=== PATIENT | female | born 1985 | race Caucasian/White ===

== ENCOUNTER 2020-04-09 11:57 | Inpatient (IN) | payer OTHER ==
[2020-04-09 12:53] VITALS: BMI 25.3
[2020-04-09] MEDS ORDERED: BISMUTH SUBSALICYLATE 524 MG/30 ML UD PO PRN (13:34)
[2020-04-09] MEDS ORDERED: ACETAMINOPHEN 325 MG TABLET (FP) PO PRN ×2 (13:34)
[2020-04-09] MEDS ORDERED: MENTHOL/PHENOL 1 EACH UD MM PRN (13:34)
[2020-04-09] MEDS ORDERED: MAG HYDROX/AL HYDROX/SIMETH 30 ML UNIT-DOSE CUP PO PRN (13:34)
[2020-04-09] MEDS ORDERED: MAGNESIUM HYDROX 2400MG/30ML ORAL SUSPENSION 30 ML CUP PO PRN (13:34)
[2020-04-09] MEDS ORDERED: NICOTINE POLACRILEX 2 MG GUM BUC PRN (13:34)
[2020-04-09] MEDS ORDERED: IBUPROFEN 400 MG TABLET (FP) PO PRN (13:34)
[2020-04-09] MEDS ORDERED: METHOCARBAMOL 500 MG TABLET PO PRN (13:34)
[2020-04-09] MEDS ORDERED: ONDANSETRON *ODT* 4 MG TABLET SL PRN (13:34)
[2020-04-09] MEDS ORDERED: MAGNESIUM CITRATE 300 ML BOTTLE PO PRN (13:34)
[2020-04-09] MEDS ORDERED: cloNIDine HCL 0.1 MG TABLET PO PRN (13:34)
[2020-04-09] MEDS ORDERED: METHADONE HCL 10 MG TABLET (FOR DETOX USE ONLY) PO ONE (14:00)
[2020-04-09] MEDS: NICOTINE 14 MG/24 HOURS TOPICAL PATCH TD SCH (15:08)
[2020-04-09] MEDS: hydrOXYzine PAMOATE 25 MG CAPSULE (FP) PO SCH ×3 (15:42→22:18)
[2020-04-09] MEDS: PRENATAL VITAMINS W/ FOLIC ACID TABLET (FP) PO SCH (15:42)
[2020-04-09 17:34] LABS: POTASSIUM 3.5 mmol/L (3.5-5.1)
[2020-04-09 17:35] LABS: HEMATOCRIT 36.1 % (32.4-45.2); HEMOGLOBIN 11.9 GM/dL (10.7-15.3); MCH 29.6 pg (25.7-33.7); MCHC 32.9 g/dl (32.0-36.0); MEAN PLT VOLUME 8.2 fl (7.5-11.1); PLATELET COUNT 374 K/MM3 (134-434); RBC 4.01 M/mm3 (3.60-5.2); RDW 13.9 % (11.6-15.6); WHITE BLOOD COUNT 9.6 K/mm3 (4.0-10.0)
[2020-04-09 17:38] LABS: ALBUMIN 3.8 g/dl (3.4-5.0); BLOOD UREA NITROGEN 5.6 mg/dL (7-18); CALCIUM 9.1 mg/dL (8.5-10.1)
[2020-04-09 17:40] LABS: CREATININE 0.7 mg/dL (0.55-1.3)
[2020-04-09 17:42] LABS: BILIRUBIN,TOTAL 0.4 mg/dL (0.2-1); TOT PROT 7.3 g/dl (6.4-8.2)
[2020-04-09 18:33] LABS: HIV INTERPRETATION NEGATIVE (NEGATIVE)
[2020-04-09] MEDS: THIAMINE HCL 100 MG TABLET (FP) PO SCH (22:18)
[2020-04-09] MEDS: MELATONIN 5 MG TABLETS PO SCH (22:18)
[2020-04-10] MEDS: hydrOXYzine PAMOATE 25 MG CAPSULE (FP) PO SCH ×5 (05:59→21:22)
[2020-04-10] MEDS ORDERED: METHADONE HCL 10 MG TABLET (FOR DETOX USE ONLY) ONE (09:27)
[2020-04-10] MEDS ORDERED: METHADONE HCL 5 MG TABLET (FOR DETOX USE ONLY) ONE (09:27)
[2020-04-10] MEDS ORDERED: ESCITALOPRAM OXALATE 10 MG TABLET ONE (09:27)
[2020-04-10] MEDS ORDERED: METHADONE (DETOX) 20 MG, METHADONE (DETOX) 5 MG PO ONE (10:00)
[2020-04-10] MEDS: ESCITALOPRAM OXALATE 20 MG TABLET PO SCH (10:15)
[2020-04-10] MEDS: PRENATAL VITAMINS W/ FOLIC ACID TABLET (FP) PO SCH (10:15)
[2020-04-10] MEDS: NICOTINE 14 MG/24 HOURS TOPICAL PATCH TD SCH (10:15)
[2020-04-10] MEDS: buPROPion HCL 100 MG TABLET PO SCH (11:21)
[2020-04-10] MEDS: THIAMINE HCL 100 MG TABLET (FP) PO SCH (21:22)
[2020-04-10] MEDS: MELATONIN 5 MG TABLETS PO SCH (21:22)
[2020-04-11] MEDS: hydrOXYzine PAMOATE 25 MG CAPSULE (FP) PO SCH ×5 (07:10→21:12)
[2020-04-11] MEDS ORDERED: ESCITALOPRAM OXALATE 10 MG TABLET ONE (09:13)
[2020-04-11] MEDS ORDERED: METHADONE HCL 10 MG TABLET (FOR DETOX USE ONLY) PO ONE (10:00)
[2020-04-11] MEDS: buPROPion HCL 100 MG TABLET PO SCH (10:04)
[2020-04-11] MEDS: PRENATAL VITAMINS W/ FOLIC ACID TABLET (FP) PO SCH (10:04)
[2020-04-11] MEDS: ESCITALOPRAM OXALATE 20 MG TABLET PO SCH (10:04)
[2020-04-11] MEDS: NICOTINE 14 MG/24 HOURS TOPICAL PATCH TD SCH (10:05)
[2020-04-11] MEDS: MELATONIN 5 MG TABLETS PO SCH (21:12)
[2020-04-11] MEDS: THIAMINE HCL 100 MG TABLET (FP) PO SCH (21:12)
[2020-04-12] MEDS: hydrOXYzine PAMOATE 25 MG CAPSULE (FP) PO SCH ×5 (06:29→22:24)
[2020-04-12] MEDS ORDERED: ESCITALOPRAM OXALATE 10 MG TABLET ONE (08:12)
[2020-04-12] MEDS ORDERED: METHADONE HCL 5 MG TABLET (FOR DETOX USE ONLY) ONE (08:12)
[2020-04-12] MEDS ORDERED: METHADONE HCL 10 MG TABLET (FOR DETOX USE ONLY) ONE (08:12)
[2020-04-12] MEDS ORDERED: METHADONE (DETOX) 10 MG, METHADONE (DETOX) 5 MG PO ONE (10:00)
[2020-04-12] MEDS: buPROPion HCL 100 MG TABLET PO SCH (10:27)
[2020-04-12] MEDS: PRENATAL VITAMINS W/ FOLIC ACID TABLET (FP) PO SCH (10:27)
[2020-04-12] MEDS: ESCITALOPRAM OXALATE 20 MG TABLET PO SCH (10:28)
[2020-04-12] MEDS: NICOTINE 14 MG/24 HOURS TOPICAL PATCH TD SCH (10:29)
[2020-04-12] MEDS: MELATONIN 5 MG TABLETS PO SCH (22:24)
[2020-04-12] MEDS: THIAMINE HCL 100 MG TABLET (FP) PO SCH (22:24)
[2020-04-13] MEDS: hydrOXYzine PAMOATE 25 MG CAPSULE (FP) PO SCH ×5 (06:23→22:13)
[2020-04-13] MEDS: PRENATAL VITAMINS W/ FOLIC ACID TABLET (FP) PO SCH (09:36)
[2020-04-13] MEDS: NICOTINE 14 MG/24 HOURS TOPICAL PATCH TD SCH (09:37)
[2020-04-13] MEDS: buPROPion HCL 100 MG TABLET PO SCH (09:37)
[2020-04-13] MEDS: ESCITALOPRAM OXALATE 20 MG TABLET PO SCH (09:37)
[2020-04-13] MEDS ORDERED: METHADONE HCL 10 MG TABLET (FOR DETOX USE ONLY) PO ONE (10:00)
[2020-04-13] MEDS: THIAMINE HCL 100 MG TABLET (FP) PO SCH (22:13)
[2020-04-13] MEDS: MELATONIN 5 MG TABLETS PO SCH (22:13)
[2020-04-14] MEDS ORDERED: METHADONE HCL 5 MG TABLET (FOR DETOX USE ONLY) PO ONE ×2 (06:00→10:45)
[2020-04-14] MEDS: hydrOXYzine PAMOATE 25 MG CAPSULE (FP) PO SCH ×2 (06:26→10:01)
[2020-04-14] MEDS ORDERED: ESCITALOPRAM OXALATE 10 MG TABLET ONE (08:47)
[2020-04-14 09:32] VITALS: PULSE 77; TEMP 97.3
[2020-04-14] MEDS: PRENATAL VITAMINS W/ FOLIC ACID TABLET (FP) PO SCH (10:01)
[2020-04-14] MEDS: NICOTINE 14 MG/24 HOURS TOPICAL PATCH TD SCH (10:02)
[2020-04-14] MEDS: ESCITALOPRAM OXALATE 20 MG TABLET PO SCH (12:05)
[2020-04-14] MEDS: buPROPion HCL 100 MG TABLET PO SCH (12:05)
[2020-04-14 13:26] VITALS: BP 119/77
== END 2020-04-14 12:46 | disposition other institution (70) | DRG 773 ==
LOC: YASAS 11:57 → Y3N 14:05
PROVIDERS: ADMIT Allergy & Immunology; ATTEND Allergy & Immunology
PROC: HZ2ZZZZ Detoxification Services for Substance Abuse Treatment (ICD-10-PCS; principal; 2020-04-09)
DX: F11.23 Opioid dependence with withdrawal (principal); F17.210 Nicotine dependence, cigarettes, uncomplicated; F19.24 Other psychoactive substance dependence with psychoactive substance-induced mood disorder; F41.1 Generalized anxiety disorder; F32.9 Major depressive disorder, single episode, unspecified; Z90.49 Acquired absence of other specified parts of digestive tract
CPT/HCPCS: 36415; 80053; 81025; 82962; 85027; 86780; 87389; 93005; 93010; C9803; Q0162; U0003

== ENCOUNTER 2020-04-14 13:02 | Inpatient (IN) | payer OTHER ==
[2020-04-14] MEDS ORDERED: MENTHOL/PHENOL 1 EACH UD MM PRN (14:13)
[2020-04-14] MEDS ORDERED: MAGNESIUM CITRATE 300 ML BOTTLE PO PRN (14:13)
[2020-04-14] MEDS ORDERED: P-EPHED 60MG/TRIPROLIDI 2.5MG TABLET PO PRN (14:13)
[2020-04-14] MEDS ORDERED: guaiFENesin 200 MG/10 ML 10 ML UNIT-DOSE CUPS PO PRN (14:13)
[2020-04-14] MEDS ORDERED: ACETAMINOPHEN 325 MG TABLET (FP) PO PRN (14:13)
[2020-04-14] MEDS ORDERED: LOPERAMIDE HCL 2 MG CAPSULE PO PRN (14:13)
[2020-04-14] MEDS ORDERED: MAGNESIUM HYDROX 2400MG/30ML ORAL SUSPENSION 30 ML CUP PO PRN (14:13)
[2020-04-14] MEDS ORDERED: ONDANSETRON *ODT* 4 MG TABLET SL PRN ×2 (14:23→14:37)
[2020-04-14] MEDS: METHOCARBAMOL 500 MG TABLET PO SCH ×2 (18:25→21:26)
[2020-04-14] MEDS: MELATONIN 5 MG TABLETS PO SCH (21:26)
[2020-04-14] MEDS: THIAMINE HCL 100 MG TABLET (FP) PO SCH (21:26)
[2020-04-14] MEDS: hydrOXYzine PAMOATE 25 MG CAPSULE (FP) PO PRN (21:27)
[2020-04-15] MEDS ORDERED: PT OWN MED DRAWER 7, Y5N ONE (09:10)
[2020-04-15] MEDS: buPROPion HCL 100 MG TABLET PO SCH (11:15)
[2020-04-15] MEDS: NICOTINE 7 MG/24 HOURS TOPICAL PATCH TD SCH (11:15)
[2020-04-15] MEDS: ESCITALOPRAM OXALATE 20 MG TABLET PO SCH (11:16)
[2020-04-15] MEDS: PRENATAL VITAMINS W/ FOLIC ACID TABLET (FP) PO SCH (11:16)
[2020-04-15] MEDS: METHOCARBAMOL 500 MG TABLET PO SCH ×4 (11:16→21:15)
[2020-04-15] MEDS: NICOTINE POLACRILEX 2 MG GUM BUC PRN ×2 (11:17→19:29)
[2020-04-15] MEDS: IBUPROFEN 400 MG TABLET (FP) PO PRN (14:23)
[2020-04-15] MEDS: MELATONIN 5 MG TABLETS PO SCH (21:15)
[2020-04-15] MEDS: THIAMINE HCL 100 MG TABLET (FP) PO SCH (21:15)
[2020-04-16] MEDS ORDERED: PT OWN MED DRAWER 7, Y5N ONE (09:00)
[2020-04-16] MEDS: buPROPion HCL 100 MG TABLET PO SCH (12:12)
[2020-04-16] MEDS: NICOTINE 7 MG/24 HOURS TOPICAL PATCH TD SCH (12:12)
[2020-04-16] MEDS: METHOCARBAMOL 500 MG TABLET PO SCH ×4 (12:12→22:11)
[2020-04-16] MEDS: PRENATAL VITAMINS W/ FOLIC ACID TABLET (FP) PO SCH (12:12)
[2020-04-16] MEDS: ESCITALOPRAM OXALATE 20 MG TABLET PO SCH (12:12)
[2020-04-16] MEDS: MAG HYDROX/AL HYDROX/SIMETH 30 ML UNIT-DOSE CUP PO PRN (12:13)
[2020-04-16] MEDS: THIAMINE HCL 100 MG TABLET (FP) PO SCH (22:11)
[2020-04-16] MEDS: MELATONIN 5 MG TABLETS PO SCH (22:11)
[2020-04-17] MEDS ORDERED: PT OWN MED DRAWER 7, Y5N ONE (08:53)
[2020-04-17] MEDS: NICOTINE 7 MG/24 HOURS TOPICAL PATCH TD SCH (11:51)
[2020-04-17] MEDS: ESCITALOPRAM OXALATE 20 MG TABLET PO SCH (11:51)
[2020-04-17] MEDS: PRENATAL VITAMINS W/ FOLIC ACID TABLET (FP) PO SCH (11:51)
[2020-04-17] MEDS: buPROPion HCL 100 MG TABLET PO SCH (11:51)
[2020-04-17] MEDS: METHOCARBAMOL 500 MG TABLET PO SCH ×4 (11:51→21:20)
[2020-04-17] MEDS: NICOTINE POLACRILEX 2 MG GUM BUC PRN ×5 (11:52→21:50)
[2020-04-17] MEDS: hydrOXYzine PAMOATE 25 MG CAPSULE (FP) PO PRN ×2 (11:53→21:20)
[2020-04-17] MEDS: MAG HYDROX/AL HYDROX/SIMETH 30 ML UNIT-DOSE CUP PO PRN (16:44)
[2020-04-17] MEDS: MELATONIN 5 MG TABLETS PO SCH (21:20)
[2020-04-17] MEDS: THIAMINE HCL 100 MG TABLET (FP) PO SCH (21:20)
[2020-04-18] MEDS: NICOTINE 7 MG/24 HOURS TOPICAL PATCH TD SCH (10:34)
[2020-04-18] MEDS: ESCITALOPRAM OXALATE 20 MG TABLET PO SCH (10:34)
[2020-04-18] MEDS: PRENATAL VITAMINS W/ FOLIC ACID TABLET (FP) PO SCH (10:34)
[2020-04-18] MEDS: METHOCARBAMOL 500 MG TABLET PO SCH ×4 (10:35→22:47)
[2020-04-18] MEDS: buPROPion HCL 100 MG TABLET PO SCH (10:35)
[2020-04-18] MEDS: hydrOXYzine PAMOATE 25 MG CAPSULE (FP) PO PRN ×2 (10:36→22:47)
[2020-04-18] MEDS: THIAMINE HCL 100 MG TABLET (FP) PO SCH (22:47)
[2020-04-18] MEDS: MELATONIN 5 MG TABLETS PO SCH (22:48)
[2020-04-18] MEDS: IBUPROFEN 400 MG TABLET (FP) PO PRN (22:48)
[2020-04-19] MEDS ORDERED: PT OWN MED DRAWER 7, Y5N ONE (09:11)
[2020-04-19] MEDS: ESCITALOPRAM OXALATE 20 MG TABLET PO SCH (11:43)
[2020-04-19] MEDS: METHOCARBAMOL 500 MG TABLET PO SCH ×4 (11:43→21:27)
[2020-04-19] MEDS: hydrOXYzine PAMOATE 25 MG CAPSULE (FP) PO PRN ×2 (11:43→21:28)
[2020-04-19] MEDS: NICOTINE 7 MG/24 HOURS TOPICAL PATCH TD SCH (11:45)
[2020-04-19] MEDS: buPROPion HCL 100 MG TABLET PO SCH (11:45)
[2020-04-19] MEDS: PRENATAL VITAMINS W/ FOLIC ACID TABLET (FP) PO SCH (11:45)
[2020-04-19] MEDS: NICOTINE POLACRILEX 2 MG GUM BUC PRN ×2 (17:56→20:39)
[2020-04-19] MEDS: IBUPROFEN 400 MG TABLET (FP) PO PRN (21:28)
[2020-04-19] MEDS: THIAMINE HCL 100 MG TABLET (FP) PO SCH (21:28)
[2020-04-19] MEDS: MELATONIN 5 MG TABLETS PO SCH (21:28)
[2020-04-20 06:51] VITALS: BP 105/66; PULSE 58; TEMP 97.6
[2020-04-20] MEDS: NICOTINE POLACRILEX 2 MG GUM BUC PRN (07:53)
[2020-04-20] MEDS: hydrOXYzine PAMOATE 25 MG CAPSULE (FP) PO PRN ×2 (08:42→09:06)
[2020-04-20] MEDS: PRENATAL VITAMINS W/ FOLIC ACID TABLET (FP) PO SCH (09:06)
[2020-04-20] MEDS: buPROPion HCL 100 MG TABLET PO SCH (09:06)
[2020-04-20] MEDS: METHOCARBAMOL 500 MG TABLET PO SCH (09:06)
[2020-04-20] MEDS: NICOTINE 7 MG/24 HOURS TOPICAL PATCH TD SCH (09:06)
[2020-04-20] MEDS: ESCITALOPRAM OXALATE 20 MG TABLET PO SCH (09:06)
== END 2020-04-20 09:00 | disposition home or self-care (01) | DRG 772 ==
LOC: YASAS 13:02 → Y3W 13:03
PROVIDERS: ADMIT Allergy & Immunology; ATTEND Allergy & Immunology
PROC: HZ42ZZZ Group Counseling for Substance Abuse Treatment, Cognitive-Behavioral (ICD-10-PCS; principal; 2020-04-14)
DX: F11.20 Opioid dependence, uncomplicated (principal); F13.20 Sedative, hypnotic or anxiolytic dependence, uncomplicated; F16.20 Hallucinogen dependence, uncomplicated; F17.210 Nicotine dependence, cigarettes, uncomplicated
CPT/HCPCS: 36415; 82947